=== PATIENT | male | born 1960 | race Caucasian/White ===

== ENCOUNTER 2022-03-28 13:19 | Day surgery (SDC) | payer OTHER ==
[~2022-03-28] VITALS: Ht 182.9 cm; Wt 97.6 kg
[2022-03-28] MEDS ORDERED: TELM20 (14:12)
[2022-03-28] MEDS ORDERED: METO25ER (14:12)
[2022-03-28] MEDS ORDERED: FUROSEMIDE10 MG/1 M1 (14:13)
[2022-03-28] MEDS ORDERED: POTA8 (14:13)
== END 2022-03-28 17:15 | disposition home or self-care (01) ==
LOC: ORSCSDS 13:19
PROVIDERS: Student in an Organized Health Care Education/Training Program
PROC: 0DB58ZX Excision of Esophagus, Via Natural or Artificial Opening Endoscopic, Diagnostic (ICD-10-PCS; principal; 2022-03-28 14:45)
PROC: 0DB78ZX Excision of Stomach, Pylorus, Via Natural or Artificial Opening Endoscopic, Diagnostic (ICD-10-PCS; principal; 2022-03-28 14:45)
PROC: 0DBK8ZX Excision of Ascending Colon, Via Natural or Artificial Opening Endoscopic, Diagnostic (ICD-10-PCS; principal; 2022-03-28 14:45)
PROC: 0DB98ZX Excision of Duodenum, Via Natural or Artificial Opening Endoscopic, Diagnostic (ICD-10-PCS; principal; 2022-03-28 14:45)
PROC: 3E0H8GC Introduction of Other Therapeutic Substance into Lower GI, Via Natural or Artificial Opening Endoscopic (ICD-10-PCS; principal; 2022-03-28 14:45)
PROC: 0DB48ZX Excision of Esophagogastric Junction, Via Natural or Artificial Opening Endoscopic, Diagnostic (ICD-10-PCS; principal; 2022-03-28 14:45)
PROC: 0DBM8ZX Excision of Descending Colon, Via Natural or Artificial Opening Endoscopic, Diagnostic (ICD-10-PCS; principal; 2022-03-28 14:45)
DX: R19.7 Diarrhea, unspecified (principal); R93.3 Abnormal findings on diagnostic imaging of other parts of digestive tract; K21.9 Gastro-esophageal reflux disease without esophagitis; K29.70 Gastritis, unspecified, without bleeding; K29.80 Duodenitis without bleeding; D12.2 Benign neoplasm of ascending colon; D12.4 Benign neoplasm of descending colon; F17.210 Nicotine dependence, cigarettes, uncomplicated; I10 Essential (primary) hypertension; Z79.899 Other long term (current) drug therapy; Z79.82 Long term (current) use of aspirin
CPT/HCPCS: 88305; 88342; J0330; J0461; J2405; J2704; J7120; Q9968